=== PATIENT | male | born 1970 | race Caucasian/White ===

== ENCOUNTER 2024-08-29 21:45 | Emergency (ER) | payer OTHER ==
[~2024-08-29] VITALS: Ht 182.8 cm; Wt 108.9 kg
[2024-08-29] MEDS ORDERED: CELEBREX50 MG PO (21:57)
[2024-08-29] MEDS ORDERED: LIDOCAINE PAIN1 EACH TD (22:03)
[2024-08-29] MEDS ORDERED: ZANAFLEX4 M1 PO (22:04)
[2024-08-29] MEDS ORDERED: OMEPRAZOLE20 M3 PO (22:05)
[2024-08-29] MEDS ORDERED: IMITREX100 MG PO (22:05)
[2024-08-29] MEDS ORDERED: [UNRECOGNIZED DRUG - OTHER] TP (22:06)
[2024-08-29] MEDS ORDERED: METHOCARBAMOL500 M1 PO (22:09)
[2024-08-29] MEDS ORDERED: methylPREDNISolone sod succ 125 MG VIAL IM ONE (22:10)
[2024-08-29] MEDS ORDERED: Ketorolac Tromethamine 30 MG/ML VIAL IM ONE (22:10)
[2024-08-29] MEDS ORDERED: METHOCARBAMOL 500 MG TAB PO ONE (22:10)
== END 2024-08-29 22:27 | disposition home or self-care (01) ==
LOC: ED 21:45
DX: S33.5XXA Sprain of ligaments of lumbar spine, initial encounter (principal); I10 Essential (primary) hypertension; E78.5 Hyperlipidemia, unspecified; K21.9 Gastro-esophageal reflux disease without esophagitis; Z79.899 Other long term (current) drug therapy; X58.XXXA Exposure to other specified factors, initial encounter; Y93.89 Activity, other specified; Y92.89 Other specified places as the place of occurrence of the external cause; Y99.8 Other external cause status

== ENCOUNTER 2025-09-22 11:53 | Emergency (ER) | payer OTHER ==
[~2025-09-22] VITALS: Ht 180.3 cm; Wt 99.8 kg
[~2025-09-22 11:53] MED LIST: CELEBREX50 MG PO; IMITREX100 MG PO; LIDOCAINE PAIN1 EACH TD; METHOCARBAMOL500 M1 PO; OMEPRAZOLE20 M3 PO; ZANAFLEX4 M1 PO; [UNRECOGNIZED DRUG - OTHER] TP
[2025-09-22] MEDS ORDERED: PREDNISONE50 MG PO (12:19)
== END 2025-09-22 12:28 | disposition home or self-care (01) ==
LOC: ED 11:53
DX: M54.42 Lumbago with sciatica, left side (principal); I10 Essential (primary) hypertension; M19.90 Unspecified osteoarthritis, unspecified site